=== PATIENT | female | born 1980 | race Caucasian/White ===

== ENCOUNTER 2022-03-27 10:57 | Emergency (ER) | payer OTHER, SELFPAY ==
--- NOTE | 2022-03-27 11:04 | ED.PSYCH ---
HPI - Psych General Chief Complaint: ETOH/Substance Use Stated Complaint: detox on opioid Time Seen by Provider: 03/27/22 11:02 Source: patient Mode of arrival: EMS Limitations: no limitations History of Present Illness MD complaint: substance abuse Onset (ago): year(s) Duration: constant History of same: Yes Relieving factors: none Exacerbating factors: other (states she is in pain wants methadone) Context: recent drug abuse and significant life stressor Associated psychiatric symptoms: none Associated symptoms: denies other symptoms Treatments prior to arrival: none Related Data Allergies Allergy/AdvReac Type Severity Reaction Status Date / Time Penicillins Allergy Unknown Unknown Verified 03/27/22 11:23 Review of Systems Review of Systems: Constitutional : No Fever, No Chills, No Fatigue, No Malaise ENT/Mouth : No sore throat, No Rhinorrhea Eyes: No Eye Pain, No Swelling, No Redness Cardiovascular : No Chest Pain, No SOB Respiratory : No Cough, No Sputum, No Wheezing Gastrointestinal : No Nausea, No Vomiting, No Diarrhea, No abdominal Pain Genitourinary : No Dysuria, No Urinary Frequency, No Hematuria, Musculoskeletal : No joint pain, pos Myalgias, No Joint Swelling Skin : No Skin Lesions, No rash Neuro : No Weakness, No Numbness, No Dizziness, No Headache Psych : pos Anxiety/Panic, No Depression Heme/Lymph: No Bruising, No Bleeding,No Lymphadenopathy Endocrine : No Polyuria, No Polydipsia All other systems reviewed and are negative [facility] Past Medical History Attestation statement: The following information was validated with the patient. Medical History Opiate abuse, continuous Social History Social History (Updated 03/27/22 @ 11:07 by Jocelyn Hsieh DO) Patient Tobacco Use Status: Current someday Tobacco user Substance Use Type: Heroin Physical Exam Vital Signs: Vital Signs: Last Vital Signs Temp 99.0 F 03/27/22 15:11 Pulse 72 03/27/22 15:11 Resp 18 03/27/22 15:11 BP 120/73 03/27/22 15:11 Pulse Ox 100 03/27/22 15:11 O2 Del Method 03/27/22 15:11 BMI result Body Mass Index 17.6 Appearance: Alert. Oriented X3. No acute distress. very hard to get a history from had to repeatedly ask questions too seems annoyed Eyes: Pupils equal, round and reactive to light. ENT: Pharynx normal. Neck: Normal inspection. Neck supple. CVS: Normal heart rate and rhythm. Pulses normal. Respiratory: No respiratory distress. Breath sounds normal. Abdomen: Soft and non-tender. Skin: Skin warm and dry. Normal skin color. Normal skin turgor. Extremities: No lower extremity edema. No calf ttp Neuro: Oriented X 3. No motor deficit. No sensory deficit. Course Course Course Narrative: patient is just sleeping agitated when we wake her up and try to speak to her - then she has yelled at me to just give her methadone at this time she has been in the ED for 5 hours we have had our addiction medicine team come down x 2 to see her without the patient engaging she is not overdoses her VS and labs are stable at this time I am going to discharge her and if she wants to come back for assistance she can but I do not see the need to dose her in the ED as she is not in withdrawal MDM - Psych MDM Narrative Medical decision making narrative: 41 yo female with hx of opiate abuse just left halfway and EMS notes that the security guards told them she was dope sick patient states she last used yesterday, has no SI, and is requesting methadone. Will obtain labs and refer to addiction medicine group. Lab Data Result diagrams: 03/27/22 12:18 03/27/22 12:18 Labs: Lab Results 03/27/22 03/27/22 Range/Units 12:18 12:18 WBC 6.9 (4.8-10.8) X10*3/uL RBC 4.21 (4.20-5.50) X10*6/uL Hgb 11.3 L (12.0-16.0) g/dl Hct 35.0 L (37.0-47.0) % MCV 83.1 (80.0-98.0) fL MCH 26.8 L (27.0-33.0) pg MCHC 32.3 (31.0-35.0) g/dl RDW 15.2 (11.0-16.0) % Plt Count 422 H (160-400) X10*3/uL MPV 8.9 L (9.4-12.3) fL Immature Gran % (Auto) 0.3 (0.0-0.4) % Neut % (Auto) 71.4 (45-73) % Lymph % (Auto) 20.6 (20-40) % Churchill % (Auto) 7.3 (2-11) % Eos % (Auto) 0.1 (0-4) % Baso % (Auto) 0.3 (0-2) % Lymph # (Auto) 1.4 (1.2-4.9) X10*3/uL Churchill # (Auto) 0.5 (0.1-1.2) X10*3/uL Eos # (Auto) 0.0 (0.0-0.4) X10*3/uL Baso # (Auto) 0.0 (0.0-0.2) X10*3/uL Abs Immat Gran (auto) 0.02 (0.00-0.03) X10*3/uL Absolute Neuts (auto) 4.9 (2.0-8.3) x10*3/uL Absolute Nucleated RBC 0.000 (0.0-0.012) X10*3/uL Nucleated RBC % (auto) 0.0 (0.0-0.2) /100WBC Sodium 140 (135-145) mmol/L Potassium 3.0 L (3.3-5.1) mmol/L Chloride 105 (96-108) mmol/L Carbon Dioxide 24 (22-29) mmol/L Anion Gap 14 (12-20) BUN 8 L (9-16) mg/dL Creatinine 0.60 (0.5-1.4) mg/dL Estim Creat Clear Calc 90.1 Estimated GFR > 60 Random Glucose 94 (60-115) mg/dL Calcium 8.6 (8.4-10.2) mg/dL Total Bilirubin 0.3 (0.0-1.0) mg/dL Direct Bilirubin 0.2 (0.0-0.5) mg/dL AST 26 (5-31) U/L ALT 21 (0-31) U/L Alkaline Phosphatase 83 (39-117) U/L Total Protein 8.1 H (6.5-8.0) g/dL Albumin 3.1 L (3.5-5.0) g/dL Beta HCG, Quant < 2 mIU/mL Discharge Plan Discharge Clinical Impression: Acute hypokalemia, Opiate abuse, continuous Patient Disposition: Home, Self-Care Instructions: Hypokalemia (ED), Opioid Use Disorder (ED) Additional Instructions: return to ED for any worsening symptoms or concerns you can come back at any time we had you in our department for 5 hours with repeated attempts to talk to you about starting medications but you did not participate you were given a sheet on our comprehensive clinic - please call or walk in.
--- NOTE | 2022-03-27 11:06 | ECG_ITS ---
Test Reason : ETOH Blood Pressure : / mmHG Vent. Rate : 079 BPM Atrial Rate : 079 BPM P-R Int : 146 ms QRS Dur : 092 ms QT Int : 420 ms P-R-T Axes : 055 082 062 degrees QTc Int : 481 ms Normal sinus rhythm RSR' or QR pattern in V1 suggests right ventricular conduction delay T wave abnormality, consider anterior ischemia Abnormal ECG No previous ECGs available Referred By: Jocelyn Hsieh Electronically Signed By:MARC LILLY
--- NOTE | 2022-03-27 11:15 | PC.NURSE ---
Patient refuse EKG at the moment do it later . Provider and nurse aware
[2022-03-27 11:24] VITALS: BP 124/78; BP 124/83; PULSE 60; PULSE 75; RESP 16; TEMP 36.8; O2SAT 100; O2SAT 94; BMI 17.6
[2022-03-27 12:25] LABS: MANUAL DIFF FLAG NO
[2022-03-27 12:26] LABS: Basophils Percent Auto 0.3 % (0-2); Eosinophils Percent Auto 0.1 % (0-4); Hemoglobin 11.3 g/dl (12.0-16.0); Imm Gran Abs Auto 0.02 X10*3/uL (0.00-0.03); Imm Gran Pct Auto 0.3 % (0.0-0.4); Lymphocytes Absolute Auto 1.4 X10*3/uL (1.2-4.9); Lymphocytes Percent Auto 20.6 % (20-40); Mean Corpuscular HGB Conc 32.3 g/dl (31.0-35.0); Mean Corpuscular Hemoglobin 26.8 pg (27.0-33.0); Mean Corpuscular Volume 83.1 fL (80.0-98.0); Mean Platelet Volume 8.9 fL (9.4-12.3); Monocytes Absolute Auto 0.5 X10*3/uL (0.1-1.2); Monocytes Percent Auto 7.3 % (2-11); Neutrophils Absolute Auto 4.9 x10*3/uL (2.0-8.3); Neutrophils Percent Auto 71.4 % (45-73); Platelet Count 422 X10*3/uL (160-400); Red Blood Count 4.21 X10*6/uL (4.20-5.50); Red Cell Distribution Width 15.2 % (11.0-16.0); White Blood Count 6.9 X10*3/uL (4.8-10.8)
[2022-03-27 12:48] LABS: HCG Quantitative < 2 mIU/mL
[2022-03-27 13:12] LABS: Alanine Aminotransferase 21 U/L (0-31); Albumin Level 3.1 g/dL (3.5-5.0); Alkaline Phosphatase 83 U/L (39-117); Anion Gap 14 (12-20); Aspartate Amino Transferase 26 U/L (5-31); Bilirubin Direct 0.2 mg/dL (0.0-0.5); Bilirubin Total 0.3 mg/dL (0.0-1.0); Blood Urea Nitrogen 8 mg/dL (9-16); Calcium 8.6 mg/dL (8.4-10.2); Carbon Dioxide 24 mmol/L (22-29); Chloride 105 mmol/L (96-108); Creatinine Clr Calc Pharmacy 90.1; Estimated Glomerular Filt Rate > 60; Glucose Random 94 mg/dL (60-115); Sodium 140 mmol/L (135-145); Total Protein 8.1 g/dL (6.5-8.0)
[2022-03-27 15:11] VITALS: BP 120/73; PULSE 72; RESP 18; TEMP 37.2; O2SAT 100
[2022-03-27] MEDS: Potassium Chloride ER 20 MEQ TAB.ER.PRT 40 MEQ PO (16:38)
[2022-03-27] MEDS: Naloxone HCl Nasal TAKE HOME 4 MG SPRAY NOSTRILALT (16:39)
[2022-03-27 16:40] LABS: Troponin-I High Sensitivity 7.2 ng/L (<3.5-17.0)
[2022-03-27 16:56] VITALS: PULSE 72
--- NOTE | 2022-03-27 17:48 | MHC.CARE ---
Addendum entered by KAMILLE Bhat 03/27/22 19:58: Correction- sustainability coach is in, pt has a bed at [facility] being held for her in the morning. Addendum entered by KAMILLE Bhat 03/27/22 19:34: No sustainability coach in this evening. ATS bedsearch will continue tomorrow morning. Original Note: CARE Team conducts a state-wide ATS (detox) bed search. There are no available female ATS beds at this time. Plan is for sustainability coach to meet with pt this evening and discuss available resources.
[2022-03-27 19:44] VITALS: BP 93/55; PULSE 73; RESP 18; O2SAT 100
[2022-03-27] MEDS: LORazepam 1 MG TABLET 2 MG PO (19:48)
--- NOTE | 2022-03-27 19:49 | PC.NURSE ---
COWS scale completed and PO Ativan administered
--- NOTE | 2022-03-27 21:37 | MHC.RECOVSUP ---
? Reason for consult:OPI/ETOH o? Current location:ED06H? o? Identified substance use concern:? -? Withdrawal -? Seeking ATS (detox) ?? Intervention: o? ATS bed search started/completed/in process ? Plan: o? Bed search in progress to o? Follow up tomorrow? ? Additional information:RC met with pt, started bed search, referred to [facility] central intake for a bged
--- NOTE | 2022-03-27 21:42 | MHC.RECOVSUP ---
? Reason for consult:OPI/ETOH o? Current location:ED6H? o? Identified substance use concern:? -? Withdrawal -? Seeking ATS (detox) ?? Intervention: o? ATS bed search started/completed/in process ? Plan: o? Bed search in progress to [facility] o? Follow up tomorrow? ? Additional information:RC met with pt, successfully completed bed search, pt has bed for tomorrow morning 8 am.
--- NOTE | 2022-03-27 21:51 | PC.NURSE ---
COVID swab collected and sent as ordered. Pt. resting quietly and comfortably at this time. No s/s discomfort or distress noted at this time. Will continue to monitor
[2022-03-27 22:05] LABS: COVID-19 Test Negative (Negative)
--- NOTE | 2022-03-27 23:09 | PC.NURSE ---
Pt. is COVID negative
[2022-03-28] MEDS: LORazepam 1 MG TABLET PO (03:32)
[2022-03-28 04:03] VITALS: BP 119/70; PULSE 67; RESP 16; TEMP 37.3; O2SAT 100
[2022-03-28 04:23] VITALS: PULSE 65
[2022-03-28] MEDS: cloNIDine HCL 0.1 MG TABLET PO (04:37)
[2022-03-28] MEDS: Ondansetron ODT 4 MG TAB.RAPDIS TRANSLINGU (04:37)
--- NOTE | 2022-03-28 06:43 | PC.NURSE ---
Patient had an episode of vomiting and diarrhea, ADL care provided, Ativan 1 mg PO administered at 0332 with minimum effect, patient vomited second time at 421 COW assessed at 422 scored 6, provider notified/ administered Zofran 4 mg PO and Clonidine 0.1 mg po at 422 with + effect, patient disposition per recovery operator helper is detox bed search, patient accepted to [facility] in [place] and ride will be here at 0720, patient currently bed appears sleeping, VSS, will continue to monitor.
== END 2022-03-28 07:44 | disposition other institution (70) ==
PROVIDERS: Nurse Practitioner Family; Emergency Provider Emergency Medicine
DX: E87.6 Hypokalemia (principal); F11.10 Opioid abuse, uncomplicated; Z20.822 Contact with and (suspected) exposure to COVID-19; F17.200 Nicotine dependence, unspecified, uncomplicated
CPT/HCPCS: 36415; 80048; 80076; 84484; 84702; 85025; 87635; 93005; 99285